=== PATIENT | male | born 1985 | race Caucasian/White ===

== ENCOUNTER → 2024-11-28 09:36 | Outpatient (REF) | payer OTHER, SELFPAY | LOC: REG 09:36 | PROVIDERS: ATTENDING PHYSICIAN Family Medicine | DX: M79.671 Pain in right foot (principal) | CPT/HCPCS: 73630 ==

== ENCOUNTER 2025-04-23 06:20 | Day surgery (SDC) | payer OTHER, SELFPAY | END 2025-04-23 14:07 | disposition home or self-care (01) | LOC: GI 06:20 | PROVIDERS: ATTENDING PHYSICIAN Internal Medicine Gastroenterology | DX: Z12.11 Encounter for screening for malignant neoplasm of colon (principal); K57.30 Diverticulosis of large intestine without perforation or abscess without bleeding; K64.8 Other hemorrhoids; Z83.719 Family history of colon polyps, unspecified | CPT/HCPCS: G0105 ==